=== PATIENT | male | born 1945 | race Caucasian/White ===

== ENCOUNTER 2016-11-21 08:00 | Outpatient (CLI) | payer BC | END 2016-11-21 08:01 | disposition home or self-care (01) | DX: I10 Essential (primary) hypertension (principal); E11.9 Type 2 diabetes mellitus without complications ==

== ENCOUNTER 2017-02-25 07:12 | Outpatient (CLI) | payer BC ==
[2017-02-25 13:20] LABS: HEMOGLOBIN A1C 1.1 g/dL
[2017-02-25 13:28] LABS: BILIRUBIN,TOTAL 0.6 mg/dL (0.2-1.0); CALCIUM 9.2 mg/dL (8.5-10.3); CREATININE 1.1 mg/dL (0.6-1.2); POTASSIUM 3.9 mmol/L (3.5-5.0); TOTAL PROTEIN 6.9 g/dL (6.7-8.2)
== END 2017-02-25 07:13 ==
LOC: LAB.WCP 07:12
PROVIDERS: ATTEND Family Medicine
DX: E11.9 Type 2 diabetes mellitus without complications (principal); M54.5 Low back pain
CPT/HCPCS: 36415; 80053; 83036

== ENCOUNTER 2017-03-24 13:59 | Outpatient (CLI) | payer BC | END 2017-03-24 23:59 | disposition home or self-care (01) | LOC: LAB.WCP 13:59 | PROVIDERS: ATTEND Urology | DX: N40.1 Benign prostatic hyperplasia with lower urinary tract symptoms (principal); C61 Malignant neoplasm of prostate | CPT/HCPCS: 36415; 84153 ==

== ENCOUNTER 2017-05-26 07:08 | Outpatient (CLI) | payer BC ==
[2017-05-26 12:43] LABS: ALBUMIN/GLOBULIN RATIO 1.1 (1.0-2.2); BILIRUBIN,TOTAL 0.9 mg/dL (0.2-1.0); CALCIUM 8.9 mg/dL (8.5-10.3); POTASSIUM 4.1 mmol/L (3.5-5.0); TOTAL PROTEIN 7.2 g/dL (6.7-8.2)
[2017-05-26 13:41] LABS: HEMOGLOBIN A1C 1.01 g/dL
== END 2017-05-26 07:09 | disposition home or self-care (01) ==
LOC: LAB.WCP 07:08
PROVIDERS: ATTEND Family Medicine
DX: E11.9 Type 2 diabetes mellitus without complications (principal)
CPT/HCPCS: 36415; 80053; 82043; 83036

== ENCOUNTER 2017-08-26 15:09 | Outpatient (CLI) | payer BC ==
[2017-08-26 15:09] LABS: ALBUMIN/GLOBULIN RATIO 1.1 (1.0-2.2); BILIRUBIN,TOTAL 0.7 mg/dL (0.2-1.0); CALCIUM 8.9 mg/dL (8.5-10.3); POTASSIUM 3.8 mmol/L (3.5-5.0)
[2017-08-26 15:34] LABS: HEMOGLOBIN A1C 0.94 g/dL
== END 2017-08-26 15:10 | disposition home or self-care (01) ==
LOC: LAB.WCP 15:09
PROVIDERS: ATTEND Family Medicine
DX: M54.5 Low back pain (principal); I10 Essential (primary) hypertension; E11.9 Type 2 diabetes mellitus without complications
CPT/HCPCS: 36415; 80053; 83036

== ENCOUNTER 2017-12-01 08:00 | Outpatient (CLI) | payer BC ==
[2017-12-01 12:41] LABS: HB2 TOTAL 17.6 g/dL; HEMOGLOBIN A1C 1.12 g/dL
== END 2017-12-01 08:01 | disposition home or self-care (01) ==
LOC: LAB.WCP 08:00
PROVIDERS: ATTEND Family Medicine
DX: E11.9 Type 2 diabetes mellitus without complications (principal)
CPT/HCPCS: 36415; 83036

== ENCOUNTER 2018-04-30 08:00 | Outpatient (CLI) | payer BC ==
[2018-04-30 12:37] LABS: ALBUMIN 3.5 g/dL (3.2-5.5); ALBUMIN/GLOBULIN RATIO 1.1 (1.0-2.2); BILIRUBIN,TOTAL 0.9 mg/dL (0.2-1.0); CALCIUM 8.9 mg/dL (8.5-10.3); TOTAL PROTEIN 6.8 g/dL (6.7-8.2)
[2018-04-30 13:28] LABS: HB2 TOTAL 17.6 g/dL; HEMOGLOBIN A1C 0.93 g/dL
== END 2018-04-30 08:01 ==
LOC: LAB.WCP 08:00
PROVIDERS: ATTEND Family Medicine
DX: I10 Essential (primary) hypertension (principal); E11.9 Type 2 diabetes mellitus without complications; Z79.891 Long term (current) use of opiate analgesic
CPT/HCPCS: 36415; 80053; 82043; 83036

== ENCOUNTER 2018-12-07 08:00 | Outpatient (CLI) | payer BC ==
[2018-12-07 12:51] LABS: HB2 TOTAL 17.2 g/dL; HEMOGLOBIN A1C 0.98 g/dL; HEMOGLOBIN A1C % 7.4 % (4.6-6.2)
[2018-12-07 12:53] LABS: ALBUMIN 3.6 g/dL (3.2-5.5); ALBUMIN/GLOBULIN RATIO 1.1 (1.0-2.2); ALKALINE PHOSPHATASE 86 IU/L (42-121); ALT ALANINE AMINOTRANSFERASE 17 IU/L (10-60); AST ASPARTATE AMINOTRANSFERASE 22 IU/L (10-42); BILIRUBIN,TOTAL 0.8 mg/dL (0.2-1.0); BUN - BLOOD UREA NITROGEN 17 mg/dL (6-20); CALCIUM 8.9 mg/dL (8.5-10.3); CARBON DIOXIDE - CO2 30 mmol/L (21-32); CHLORIDE 99 mmol/L (101-111); CHOL/HDL RATIO 2.7 (<5.0); CHOLESTEROL 106 mg/dL; GFR - MDRD 73 (>89); GLUCOSE 114 mg/dL (70-100); HDL CHOLESTEROL 39 mg/dL; LDL CHOLESTEROL,CALCULATED 45 mg/dL; LDL/HDL RATIO 1.2 (<3.6); SODIUM 137 mmol/L (135-145); TOTAL PROTEIN 6.9 g/dL (6.7-8.2); VLDL CHOLESTEROL 22 mg/dL
[2018-12-07 12:55] LABS: PSA FREE 0.34 ng/mL (0.16-2.81)
[2018-12-07 12:56] LABS: PSA TOTAL 3.74 ng/mL (0.000-2.000)
[2018-12-07 12:58] LABS: BASOPHILS # (AUTO) 0.1 10^3/uL (0.0-0.1); BASOPHILS % (AUTO) 1.1 %; EOSINOPHILS # (AUTO) 0.4 10^3/uL (0.0-0.7); EOSINOPHILS % (AUTO) 5.4 %; HGB - HEMOGLOBIN 15.7 g/dL (14.0-18.0); LYMPHOCYTES # (AUTO) 2.7 10^3/uL (1.5-3.5); MEAN CORPUSCULAR HEMOGLOBIN 29.3 pg (27.0-31.0); MEAN CORPUSCULAR HGB CONC 33.7 g/dL (32.0-36.0); MEAN CORPUSCULAR VOLUME 87.1 fL (80.0-94.0); MEAN PLATELET VOLUME 8.9 fL (7.4-11.4); MONOCYTES # (AUTO) 0.7 10^3/uL (0.0-1.0); MONOCYTES % (AUTO) 10.9 %; NEUTROPHILS # (AUTO) 2.8 10^3/uL (1.5-6.6); NEUTROPHILS % (AUTO) 42.6 %; PLT - PLATELET COUNT 199 10^3/uL (130-450); RED BLOOD COUNT 5.36 10^6/uL (4.70-6.10); RED CELL DISTRIBUTION WIDTH 13.6 % (12.0-15.0); WHITE BLOOD COUNT 6.7 x10^3/uL (4.8-10.8)
[2018-12-07 13:10] LABS: CREATININE,URINE 188.8 mg/dL; MICROALBUM/CREATININE RATIO,UR 6.4 ug/mg (<30.0); MICROALBUMIN,URINE 1.2 mg/dL (0-300.0)
== END 2018-12-07 23:59 | disposition home or self-care (01) ==
LOC: LAB.WCP 08:00
PROVIDERS: ATTEND Family Medicine
DX: I10 Essential (primary) hypertension (principal); E78.5 Hyperlipidemia, unspecified; E11.9 Type 2 diabetes mellitus without complications; N40.1 Benign prostatic hyperplasia with lower urinary tract symptoms
CPT/HCPCS: 36415; 80053; 80061; 82043; 82570; 83036; 83721; 84153; 84154; 84443; 85025

== ENCOUNTER 2019-01-25 11:06 | Outpatient (CLI) | payer BC ==
--- NOTE | 2019-01-25 13:22 | XRAY Report ---
Reason: PAINFUL 5TH MT AREA R FOOT Procedure Date: 01/25/2019 Accession Number: [id number] / [id number] Procedure: WCP - Foot 3 View RT CPT Code: FULL RESULT: EXAM: RIGHT FOOT RADIOGRAPHY EXAM DATE: 01/25/2019 11:13 AM. CLINICAL HISTORY: Painful 5th MT area right foot. COMPARISON: None. TECHNIQUE: 3 views. FINDINGS: Bones: There is disruption of the trabecular pattern at the base of the fifth metatarsal as well as osseous proliferative changes in the region. The disrupted trabecular lines extend to the articular surface. Joints: No subluxation. Soft Tissues: Normal. No soft tissue swelling. IMPRESSION: Suspect chronic nondisplaced fracture with intra-articular extension at the base of the fifth metatarsal. RADIA
== END 2019-01-25 11:07 | disposition home or self-care (01) ==
LOC: DI.WCP 11:06
PROVIDERS: ATTEND Podiatrist
DX: M79.671 Pain in right foot (principal)

== ENCOUNTER 2019-02-03 10:12 | Outpatient (CLI) | payer BC ==
--- NOTE | 2019-02-03 16:53 | Nuclear Medicine Report ---
Reason: PAINFUL 5TH M R FOOT Procedure Date: 02/03/2019 Accession Number: [id number] / [id number] Procedure: NM - Bone Limited CPT Code: FULL RESULT: EXAM: TRIPLE-PHASE BONE SCAN LIMITED EXAM DATE: 02/03/2019 03:16 PM. CLINICAL HISTORY: PAINFUL 5TH M R FOOT. COMPARISON: FOOT 3 VIEW RT 01/25/2019 10:56 AM. TECHNIQUE: Patient was injected with 31.9 mCi of technetium 99m MDP intravenously with flow phase gamma camera imaging anteriorly over the feet, 5 seconds per frame for 1 minute. Subsequently, blood pool images of the feet were obtained. The patient returned 3 hours later for multiple spot images of the feet. FINDINGS: Flow Phase: There is asymmetrically increased vascular flow to the right foot. Blood Pool Phase: There is a focus of asymmetric activity corresponding to the right foot small toe. Delayed Phase: 1. Focal asymmetrically increased uptake at the distal tip of the right small toe. 2. Activity at the base of right small toe is mildly greater than that at the base of the left small toe. 3. Mild, symmetric uptake at the bilateral small toe MTP joints. 4. Slightly greater activity in the right great toe MCP joint compared to the left. 5. Focus of asymmetrically increased uptake at the left fourth toe metatarsal base. 6. Focus of asymmetrically increased uptake in the posterior right calcaneus. IMPRESSION: 1. Hyperemia to the right foot with delayed phase increased uptake at the distal tip of the right small toe. Differential considerations for this pattern include fracture, infection, osteoarthritis. 2. There are several additional foci of delayed phase increased uptake in both feet without associated hyperemia, including mildly greater uptake at the base of the right small toe metatarsal compared to the left. RADIA
== END 2019-02-03 10:13 | disposition home or self-care (01) ==
LOC: DI 10:12
PROVIDERS: ATTEND Podiatrist
DX: M79.671 Pain in right foot (principal); R68.89 Other general symptoms and signs
CPT/HCPCS: 78300

== ENCOUNTER 2019-04-27 08:00 | Outpatient (CLI) | payer BC ==
[2019-04-27 12:32] LABS: ALBUMIN 3.5 g/dL (3.2-5.5); BILIRUBIN,TOTAL 0.5 mg/dL (0.2-1.0); CALCIUM 8.9 mg/dL (8.5-10.3); TOTAL PROTEIN 6.9 g/dL (6.7-8.2)
[2019-04-27 12:42] LABS: HB2 TOTAL 16.9 g/dL; HEMOGLOBIN A1C 1.03 g/dL; HEMOGLOBIN A1C % 7.7 % (4.6-6.2)
[2019-04-27 12:51] LABS: CREATININE,URINE 173.1 mg/dL; MICROALBUM/CREATININE RATIO,UR 14.4 ug/mg (<30.0); MICROALBUMIN,URINE 2.5 mg/dL (0-300.0)
== END 2019-04-27 23:59 | disposition home or self-care (01) ==
LOC: LAB.WCP 08:00
PROVIDERS: ATTEND Family Medicine
DX: E11.9 Type 2 diabetes mellitus without complications (principal)
CPT/HCPCS: 36415; 80053; 82043; 82570; 83036; 84443

== ENCOUNTER 2019-08-16 08:00 | Outpatient (CLI) | payer BC | END 2019-08-16 23:59 | disposition home or self-care (01) | LOC: LAB.WCP 08:00 | PROVIDERS: ATTEND Family Medicine | DX: C61 Malignant neoplasm of prostate (principal) | CPT/HCPCS: 36415; 84153 ==

== ENCOUNTER 2019-09-06 07:00 | Outpatient (CLI) | payer BC ==
[2019-09-12 19:23] LABS: CREATININE,URINE 104.9 mg/dL; MICROALBUM/CREATININE RATIO,UR 1.9 ug/mg (<30.0); MICROALBUMIN,URINE 0.2 mg/dL (0-300.0)
== END 2019-09-06 23:59 | disposition home or self-care (01) ==
LOC: LAB.R 07:00
PROVIDERS: ATTEND Family Medicine
DX: E11.9 Type 2 diabetes mellitus without complications (principal); E78.5 Hyperlipidemia, unspecified; I10 Essential (primary) hypertension
CPT/HCPCS: 82043; 82570

== ENCOUNTER 2019-09-06 08:19 | Outpatient (CLI) | payer BC ==
[2019-09-06 11:51] LABS: BASOPHILS # (AUTO) 0.1 10^3/uL (0.0-0.1); BASOPHILS % (AUTO) 0.8 %; EOSINOPHILS # (AUTO) 0.4 10^3/uL (0.0-0.7); HGB - HEMOGLOBIN 16.4 g/dL (14.0-18.0); LYMPHOCYTES # (AUTO) 2.4 10^3/uL (1.5-3.5); LYMPHOCYTES % (AUTO) 38.5 %; MEAN CORPUSCULAR HEMOGLOBIN 29.7 pg (27.0-31.0); MEAN CORPUSCULAR HGB CONC 32.7 g/dL (32.0-36.0); MEAN CORPUSCULAR VOLUME 90.8 fL (80.0-94.0); MEAN PLATELET VOLUME 10.8 fL (7.4-11.4); MONOCYTES # (AUTO) 0.7 10^3/uL (0.0-1.0); MONOCYTES % (AUTO) 11.9 %; NEUTROPHILS # (AUTO) 2.6 10^3/uL (1.5-6.6); NEUTROPHILS % (AUTO) 42.5 %; PLT - PLATELET COUNT 199 10^3/uL (130-450); RED BLOOD COUNT 5.52 10^6/uL (4.70-6.10); WHITE BLOOD COUNT 6.2 x10^3/uL (4.8-10.8)
[2019-09-06 12:06] LABS: ALBUMIN 3.6 g/dL (3.2-5.5); ALBUMIN/GLOBULIN RATIO 1.1 (1.0-2.2); BILIRUBIN,TOTAL 0.8 mg/dL (0.2-1.0); CALCIUM 8.7 mg/dL (8.5-10.3); CREATININE 0.9 mg/dL (0.6-1.2); TOTAL PROTEIN 6.9 g/dL (6.7-8.2)
[2019-09-06 12:09] LABS: HB2 TOTAL 16.8 g/dL; HEMOGLOBIN A1C 0.96 g/dL; HEMOGLOBIN A1C % 7.4 % (4.6-6.2)
== END 2019-09-06 23:59 | disposition home or self-care (01) ==
LOC: LAB.WCP 08:19
PROVIDERS: ATTEND Family Medicine
DX: E11.9 Type 2 diabetes mellitus without complications (principal); E78.5 Hyperlipidemia, unspecified; I10 Essential (primary) hypertension
CPT/HCPCS: 36415; 80053; 82043; 83036; 84443; 85025

== ENCOUNTER 2019-11-29 08:00 | Outpatient (CLI) | payer BC ==
[2019-11-29 12:26] LABS: CALCIUM 8.8 mg/dL (8.5-10.3)
[2019-11-29 12:58] LABS: HB2 TOTAL 17.8 g/dL; HEMOGLOBIN A1C 0.87 g/dL; HEMOGLOBIN A1C % 6.6 % (4.6-6.2)
[2019-11-29 18:43] LABS: CREATININE,URINE 184.7 mg/dL; MICROALBUM/CREATININE RATIO,UR 5.4 ug/mg (<30.0)
== END 2019-11-29 23:59 | disposition home or self-care (01) ==
LOC: LAB.WCP 08:00
PROVIDERS: ATTEND Family Medicine
DX: E11.9 Type 2 diabetes mellitus without complications (principal)
CPT/HCPCS: 36415; 80048; 82043; 82570; 83036

== ENCOUNTER 2020-04-19 07:35 | Outpatient (CLI) | payer BC ==
[2020-04-19 12:17] LABS: HB2 TOTAL 16.4 g/dL; HEMOGLOBIN A1C 0.76 g/dL; HEMOGLOBIN A1C % 6.4 % (4.6-6.2)
[2020-04-19 12:24] LABS: CREATININE,URINE 114.8 mg/dL
[2020-04-19 12:25] LABS: MICROALBUMIN,URINE < 0.2 mg/dL (0-300.0)
== END 2020-04-19 23:59 | disposition home or self-care (01) ==
LOC: LAB.WCP 07:35
PROVIDERS: ATTEND Family Medicine
DX: C61 Malignant neoplasm of prostate (principal); E11.9 Type 2 diabetes mellitus without complications
CPT/HCPCS: 36415; 80048; 82043; 82570; 83036; 84153

== ENCOUNTER 2020-10-09 07:23 | Outpatient (CLI) | payer BC ==
[2020-10-09 12:13] LABS: BASOPHILS % (AUTO) 0.6 %; EOSINOPHILS # (AUTO) 0.3 10^3/uL (0.0-0.7); EOSINOPHILS % (AUTO) 4.6 %; LYMPHOCYTES # (AUTO) 2.4 10^3/uL (1.5-3.5); LYMPHOCYTES % (AUTO) 36.3 %; MEAN CORPUSCULAR HEMOGLOBIN 29.5 pg (27.0-31.0); MEAN CORPUSCULAR HGB CONC 32.5 g/dL (32.0-36.0); MEAN CORPUSCULAR VOLUME 90.8 fL (80.0-94.0); MEAN PLATELET VOLUME 10.9 fL (7.4-11.4); MONOCYTES # (AUTO) 0.7 10^3/uL (0.0-1.0); MONOCYTES % (AUTO) 11.3 %; NEUTROPHILS # (AUTO) 3.1 10^3/uL (1.5-6.6); NEUTROPHILS % (AUTO) 46.9 %; PLT - PLATELET COUNT 205 10^3/uL (130-450); RED BLOOD COUNT 5.76 10^6/uL (4.70-6.10); RED CELL DISTRIBUTION WIDTH 12.5 % (12.0-15.0); WHITE BLOOD COUNT 6.6 x10^3/uL (4.8-10.8)
[2020-10-09 12:36] LABS: ALBUMIN 3.8 g/dL (3.2-5.5); ALBUMIN/GLOBULIN RATIO 1.1 (1.0-2.2); ALKALINE PHOSPHATASE 99 IU/L (42-121); ALT ALANINE AMINOTRANSFERASE 17 IU/L (10-60); AST ASPARTATE AMINOTRANSFERASE 21 IU/L (10-42); BILIRUBIN,TOTAL 0.4 mg/dL (0.2-1.0); BUN - BLOOD UREA NITROGEN 12 mg/dL (6-20); CALCIUM 9.6 mg/dL (8.5-10.3); CARBON DIOXIDE - CO2 33 mmol/L (21-32); CHLORIDE 97 mmol/L (101-111); CHOL/HDL RATIO 2.4 (<5.0); CHOLESTEROL 95 mg/dL; CREATININE 1.1 mg/dL (0.6-1.2); CREATININE,URINE 143.2 mg/dL; GLUCOSE 108 mg/dL (70-100); HDL CHOLESTEROL 40 mg/dL; LDL CHOLESTEROL,CALCULATED 38 mg/dL; MICROALBUM/CREATININE RATIO,UR 6.3 ug/mg (<30.0); MICROALBUMIN,URINE 0.9 mg/dL (0-300.0); TOTAL PROTEIN 7.3 g/dL (6.7-8.2); VLDL CHOLESTEROL 17 mg/dL
== END 2020-10-09 07:24 | disposition home or self-care (01) ==
LOC: LAB.N 07:23
PROVIDERS: ATTEND Family Medicine
DX: E11.9 Type 2 diabetes mellitus without complications (principal); C61 Malignant neoplasm of prostate
CPT/HCPCS: 36415; 80053; 80061; 82043; 82570; 83036; 83721; 84153; 85025

== ENCOUNTER 2020-11-04 07:55 | Outpatient (CLI) | payer BC ==
--- NOTE | 2020-11-04 13:29 | Ultrasound Report ---
PROCEDURE: Aorta Screening INDICATIONS: NICOTINE ADDICTION, IN REMISSION TECHNIQUE: Real time scanning was performed of the aorta and iliac arteries, with image documentatio n. COMPARISON: None FINDINGS: Aorta: Proximal aortic diameter measures 3.0 cm. Mid-aorta measures 2.3 cm. Distal aortic diameter is 2.1 cm. Iliac arteries: Right common iliac artery measures 1.2 cm. Left common iliac artery measures 1.0 cm . 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 Annual sonographic surveillance recommend ed. Reviewed by: Linden Thompson MD on 11/04/2020 12:28 PM [place] Approved by: Linden Thompson MD on 11/04/2020 12:28 PM [facility] Station ID: [id number]
== END 2020-11-04 07:56 | disposition home or self-care (01) ==
LOC: DI 07:55
PROVIDERS: ATTEND Family Medicine
DX: I71.4 Abdominal aortic aneurysm, without rupture (principal); F17.201 Nicotine dependence, unspecified, in remission; J34.2 Deviated nasal septum; J32.9 Chronic sinusitis, unspecified

== ENCOUNTER 2020-11-04 07:56 | Outpatient (CLI) | payer BC ==
--- NOTE | 2020-11-04 08:48 | CT Report ---
PROCEDURE: Sinuses INDICATIONS: DEVIATED NASAL SEPTUM, CHRONIC SINUSITIS TECHNIQUE: Noncontrast 3.0 mm axial images acquired from the frontal sinuses to the mid-sella, with coronal and sagittal reformats. For radiation dose reduction, the following was used: automated exposure control , adjustment of mA and/or kV according to patient size. COMPARISON: None. FINDINGS: Image quality: Excellent. Maxillary Sinuses: No bony remodeling or destruction. Mild bilateral maxillary sinus mucosal thicken ing. Ethmoid Air Cells: No bony remodeling or destruction. Mild bilateral ethmoid sinus mucosal thickenin g. Sphenoid Sinuses: No bony remodeling or destruction. Mild mucosal thickening within the right spheno id sinus. Frontal Sinuses: No bony remodeling or destruction. Mild mucosal thickening within the bilateral med ial frontal sinuses. Ostiomeatal Complexes: Right ostiomeatal unit is opacified. Partial opacification of the left ostiome atal unit. No Linda cells. Miscellaneous: Visualized intra-orbital contents are normal. No desire bullosa. Mild rightward nasa l septal deviation. IMPRESSION: 1. Pansinus mucosal disease. 2. Right ostiomeatal unit opacification. 3. Mild rightward nasal septal deviation. Reviewed by: Linden Thompson MD on 11/04/2020 7:47 AM [place] Approved by: Linden Thompson MD on 11/04/2020 7:47 AM [facility] Station ID: [id number]
== END 2020-11-04 07:57 | disposition home or self-care (01) ==
LOC: DI 07:56
PROVIDERS: ATTEND Family Medicine
DX: J34.2 Deviated nasal septum (principal); J32.9 Chronic sinusitis, unspecified

== ENCOUNTER 2021-01-07 07:18 | Outpatient (CLI) | payer BC ==
[2021-01-07 11:46] LABS: CALCIUM 9.4 mg/dL (8.5-10.3); CREATININE 1.1 mg/dL (0.6-1.2); POTASSIUM 4.3 mmol/L (3.5-5.0)
[2021-01-07 11:59] LABS: ESTIMATED AVERAGE GLUCOSE 148 mg/dL (70-100); HEMOGLOBIN A1c% 6.8 % (4.27-6.07)
== END 2021-01-07 07:19 | disposition home or self-care (01) ==
LOC: LAB.N 07:18
PROVIDERS: ATTEND Family Medicine
DX: E11.9 Type 2 diabetes mellitus without complications (principal)
CPT/HCPCS: 36415; 80048; 83036; 84153

== ENCOUNTER 2021-07-10 07:37 | Outpatient (CLI) | payer BC ==
[2021-07-10 12:21] LABS: BASOPHILS % (AUTO) 0.6 %; EOSINOPHILS # (AUTO) 0.3 10^3/uL (0.0-0.7); EOSINOPHILS % (AUTO) 4.3 %; HCT - HEMATOCRIT 52.7 % (42.0-52.0); HGB - HEMOGLOBIN 17.1 g/dL (14.0-18.0); LYMPHOCYTES # (AUTO) 2.3 10^3/uL (1.5-3.5); LYMPHOCYTES % (AUTO) 36.8 %; MEAN CORPUSCULAR HEMOGLOBIN 29.8 pg (27.0-31.0); MEAN CORPUSCULAR HGB CONC 32.4 g/dL (32.0-36.0); MEAN CORPUSCULAR VOLUME 91.8 fL (80.0-94.0); MEAN PLATELET VOLUME 10.9 fL (7.4-11.4); MONOCYTES # (AUTO) 0.7 10^3/uL (0.0-1.0); MONOCYTES % (AUTO) 11.6 %; NEUTROPHILS # (AUTO) 2.9 10^3/uL (1.5-6.6); NEUTROPHILS % (AUTO) 46.5 %; PLT - PLATELET COUNT 193 10^3/uL (130-450); RED BLOOD COUNT 5.74 10^6/uL (4.70-6.10); RED CELL DISTRIBUTION WIDTH 12.6 % (12.0-15.0); WHITE BLOOD COUNT 6.3 x10^3/uL (4.8-10.8)
[2021-07-10 12:40] LABS: ALBUMIN 3.7 g/dL (3.2-5.5); ALBUMIN/GLOBULIN RATIO 1.1 (1.0-2.2); ALKALINE PHOSPHATASE 88 IU/L (42-121); ALT ALANINE AMINOTRANSFERASE 19 IU/L (10-60); AST ASPARTATE AMINOTRANSFERASE 21 IU/L (10-42); BUN - BLOOD UREA NITROGEN 14 mg/dL (6-20); CALCIUM 9.2 mg/dL (8.5-10.3); CARBON DIOXIDE - CO2 34 mmol/L (21-32); CHLORIDE 98 mmol/L (101-111); CHOL/HDL RATIO 2.5 (<5.0); CHOLESTEROL 105 mg/dL; GFR - MDRD 73 (>89); GLUCOSE 77 mg/dL (70-100); HDL CHOLESTEROL 42 mg/dL; LDL CHOLESTEROL,CALCULATED 41 mg/dL; POTASSIUM 3.9 mmol/L (3.5-5.0); SODIUM 138 mmol/L (135-145); TOTAL PROTEIN 7.1 g/dL (6.7-8.2); TRIGLYCERIDES 110 mg/dL; VLDL CHOLESTEROL 22 mg/dL
[2021-07-10 13:58] LABS: ESTIMATED AVERAGE GLUCOSE 148 mg/dL (70-100); HEMOGLOBIN A1c% 6.8 % (4.27-6.07)
== END 2021-07-10 07:38 | disposition home or self-care (01) ==
LOC: LAB.N 07:37
PROVIDERS: ATTEND Family Medicine
DX: E11.9 Type 2 diabetes mellitus without complications (principal); C61 Malignant neoplasm of prostate
CPT/HCPCS: 36415; 80053; 80061; 83036; 83721; 84153; 85025

== ENCOUNTER 2021-07-18 08:19 | Outpatient (CLI) | payer BC ==
--- NOTE | 2021-07-18 09:14 | XRAY Report ---
PROCEDURE: Lumbar Spine 2 View INDICATIONS: CHRONIC LOW BACK PAIN TECHNIQUE: 3 views of the lumbar spine were acquired. COMPARISON: None. FINDINGS: Bones: 5 [id number] vertebrae are present. Degenerative disc disease of the lumbar spine with disc space narrowing at L3-4, L4-5, and L5-S1. There is facet arthrosis in the lower lumbar spine. Th ere is normal bony alignment. No vertebral body compression fractures. No suspicious bony lesions. Soft tissues: Overlying bowel gas pattern is normal. No suspicious soft tissue calcifications. The aorta is atherosclerotic with no aneurysmal dilatation. IMPRESSION: 1. Degenerative changes of the lumbar spine. 2. Multilevel disc disease and facet arthrosis as above. Reviewed by: Royer Ronquillo on 07/18/2021 9:12 AM [facility] Approved by: Royer Ronquillo on 07/18/2021 9:12 AM [facility] Station ID: [id number]
--- NOTE | 2021-07-18 09:17 | XRAY Report ---
PROCEDURE: Knee 4 View LT INDICATIONS: ARTHRITIS LEFT KNEE TECHNIQUE: 4 views of the left knee(s) were acquired. COMPARISON: None. FINDINGS: Bones: No fractures or dislocations. There is medial joint space narrowing and tricompartmental ost eophytes. No suspicious bony lesions. Soft tissues: No joint effusion. No suspicious soft tissue calcifications. IMPRESSION: 1. Tricompartmental degenerative changes consistent with osteoarthritis. 2. No acute abnormality. Reviewed by: Royer Ronquillo on 07/18/2021 9:16 AM [facility] Approved by: Royer Ronquillo on 07/18/2021 9:16 AM [facility] Station ID: [id number]
== END 2021-07-18 08:20 | disposition home or self-care (01) ==
LOC: DI.N 08:19
PROVIDERS: ATTEND Family Medicine
DX: M47.816 Spondylosis without myelopathy or radiculopathy, lumbar region (principal); M51.36 Other intervertebral disc degeneration, lumbar region; M51.37 Other intervertebral disc degeneration, lumbosacral region; M17.12 Unilateral primary osteoarthritis, left knee; C61 Malignant neoplasm of prostate

== ENCOUNTER 2022-01-09 07:21 | Outpatient (CLI) | payer BC ==
[2022-01-09 13:14] LABS: BASOPHILS # (AUTO) 0.1 10^3/uL (0.0-0.1); BASOPHILS % (AUTO) 0.9 %; EOSINOPHILS # (AUTO) 0.3 10^3/uL (0.0-0.7); EOSINOPHILS % (AUTO) 4.5 %; HCT - HEMATOCRIT 52.5 % (42.0-52.0); HGB - HEMOGLOBIN 17.3 g/dL (14.0-18.0); LYMPHOCYTES # (AUTO) 2.3 10^3/uL (1.5-3.5); LYMPHOCYTES % (AUTO) 34.5 %; MEAN CORPUSCULAR HEMOGLOBIN 29.7 pg (27.0-31.0); MEAN CORPUSCULAR VOLUME 90.1 fL (80.0-94.0); MONOCYTES # (AUTO) 0.8 10^3/uL (0.0-1.0); MONOCYTES % (AUTO) 12.2 %; NEUTROPHILS # (AUTO) 3.2 10^3/uL (1.5-6.6); NEUTROPHILS % (AUTO) 47.6 %; PLT - PLATELET COUNT 212 10^3/uL (130-450); RED BLOOD COUNT 5.83 10^6/uL (4.70-6.10); RED CELL DISTRIBUTION WIDTH 12.5 % (12.0-15.0); WHITE BLOOD COUNT 6.7 x10^3/uL (4.8-10.8)
[2022-01-09 13:51] LABS: ALBUMIN 3.7 g/dL (3.2-5.5); ALBUMIN/GLOBULIN RATIO 1.1 (1.0-2.2); ALKALINE PHOSPHATASE 90 IU/L (42-121); ALT ALANINE AMINOTRANSFERASE 17 IU/L (10-60); AST ASPARTATE AMINOTRANSFERASE 19 IU/L (10-42); BILIRUBIN,TOTAL 0.7 mg/dL (0.2-1.0); BUN - BLOOD UREA NITROGEN 13 mg/dL (6-20); CALCIUM 9.2 mg/dL (8.5-10.3); CARBON DIOXIDE - CO2 33 mmol/L (21-32); CHLORIDE 99 mmol/L (101-111); CHOL/HDL RATIO 2.7 (<5.0); CHOLESTEROL 110 mg/dL; GFR - MDRD 73 (>89); GLUCOSE 85 mg/dL (70-100); HDL CHOLESTEROL 41 mg/dL; LDL CHOLESTEROL,CALCULATED 46 mg/dL; LDL/HDL RATIO 1.1 (<3.6); POTASSIUM 4.1 mmol/L (3.5-5.0); SODIUM 141 mmol/L (135-145); TOTAL PROTEIN 7.2 g/dL (6.7-8.2); TRIGLYCERIDES 116 mg/dL; VLDL CHOLESTEROL 23 mg/dL
[2022-01-09 14:14] LABS: ESTIMATED AVERAGE GLUCOSE 154 mg/dL (70-100)
[2022-01-09 14:15] LABS: CREATININE,URINE 80.2 mg/dL; MICROALBUM/CREATININE RATIO,UR 3.7 ug/mg (<30.0); MICROALBUMIN,URINE 0.3 mg/dL (0-300.0)
== END 2022-01-09 07:22 | disposition home or self-care (01) ==
LOC: LAB.N 07:21
PROVIDERS: ATTEND Family Medicine
DX: C61 Malignant neoplasm of prostate (principal); E11.9 Type 2 diabetes mellitus without complications
CPT/HCPCS: 36415; 80053; 80061; 82043; 82570; 83036; 83721; 84153; 85025

== ENCOUNTER 2022-02-18 07:00 | Outpatient (CLI) | payer BC ==
--- NOTE | 2022-02-18 10:22 | Ultrasound Report ---
PROCEDURE: Retroperitoneal Limited INDICATIONS: AAA TECHNIQUE: Real time scanning was performed of the aorta and iliac arteries, with image documentatio n. COMPARISON: Ultrasound aorta 11/04/2020 FINDINGS: Aorta: Proximal aortic diameter measures 2.4 x 2.4 cm. Mid-aorta measures 1.8 x 1.8 cm. Distal aor tic diameter is 1.7 x 1.9 cm. Iliac arteries: Right common iliac artery measures 1 x 1.1 cm. Left common iliac artery measures 1 x 1.2 cm. IMPRESSION: Negative for abdominal aortic aneurysm. Reviewed by: Hasmukh Tristan MD on 02/18/2022 10:21 AM PDT Approved by: Hasmukh Tristan MD on 02/18/2022 10:21 AM PDT Station ID: [id number]
== END 2022-02-18 07:01 | disposition home or self-care (01) ==
LOC: DI 07:00
PROVIDERS: ATTEND Family Medicine
DX: I71.4 Abdominal aortic aneurysm, without rupture (principal)

== ENCOUNTER 2022-07-03 08:05 | Outpatient (CLI) | payer BC ==
[2022-07-03 12:02] LABS: BASOPHILS # (AUTO) 0.1 10^3/uL (0.0-0.1); BASOPHILS % (AUTO) 0.9 %; EOSINOPHILS # (AUTO) 0.4 10^3/uL (0.0-0.7); EOSINOPHILS % (AUTO) 6.2 %; HCT - HEMATOCRIT 52.2 % (42.0-52.0); HGB - HEMOGLOBIN 16.9 g/dL (14.0-18.0); LYMPHOCYTES # (AUTO) 2.4 10^3/uL (1.5-3.5); LYMPHOCYTES % (AUTO) 36.7 %; MEAN CORPUSCULAR HEMOGLOBIN 29.2 pg (27.0-31.0); MEAN CORPUSCULAR HGB CONC 32.4 g/dL (32.0-36.0); MEAN CORPUSCULAR VOLUME 90.3 fL (80.0-94.0); MEAN PLATELET VOLUME 10.6 fL (7.4-11.4); MONOCYTES # (AUTO) 0.8 10^3/uL (0.0-1.0); NEUTROPHILS # (AUTO) 2.8 10^3/uL (1.5-6.6); PLT - PLATELET COUNT 207 10^3/uL (130-450); RED BLOOD COUNT 5.78 10^6/uL (4.70-6.10); RED CELL DISTRIBUTION WIDTH 12.5 % (12.0-15.0); WHITE BLOOD COUNT 6.5 x10^3/uL (4.8-10.8)
[2022-07-03 12:28] LABS: ESTIMATED AVERAGE GLUCOSE 148 mg/dL (70-100); HEMOGLOBIN A1c% 6.8 % (4.27-6.07)
[2022-07-03 12:43] LABS: ALBUMIN 3.5 g/dL (3.2-5.5); ALBUMIN/GLOBULIN RATIO 1.1 (1.0-2.2); ALKALINE PHOSPHATASE 82 IU/L (42-121); ALT ALANINE AMINOTRANSFERASE 19 IU/L (10-60); AST ASPARTATE AMINOTRANSFERASE 21 IU/L (10-42); BILIRUBIN,TOTAL 0.8 mg/dL (0.2-1.0); BUN - BLOOD UREA NITROGEN 14 mg/dL (6-20); CALCIUM 9.2 mg/dL (8.5-10.3); CARBON DIOXIDE - CO2 33 mmol/L (21-32); CHLORIDE 100 mmol/L (101-111); CHOLESTEROL 106 mg/dL; GFR - MDRD 73 (>89); GLUCOSE 91 mg/dL (70-100); HDL CHOLESTEROL 35 mg/dL; LDL CHOLESTEROL,CALCULATED 49 mg/dL; LDL/HDL RATIO 1.4 (<3.6); POTASSIUM 3.7 mmol/L (3.5-5.0); SODIUM 140 mmol/L (135-145); TOTAL PROTEIN 6.8 g/dL (6.7-8.2); TRIGLYCERIDES 112 mg/dL; VLDL CHOLESTEROL 22 mg/dL
== END 2022-07-03 08:06 | disposition home or self-care (01) ==
LOC: LAB.N 08:05
PROVIDERS: ATTEND Family Medicine
DX: E11.9 Type 2 diabetes mellitus without complications (principal); D75.1 Secondary polycythemia; R97.20 Elevated prostate specific antigen [PSA]
CPT/HCPCS: 36415; 80053; 80061; 83036; 83721; 84153; 85025

== ENCOUNTER 2023-01-01 08:28 | Outpatient (CLI) | payer BC ==
[2023-01-01 12:14] LABS: BASOPHILS # (AUTO) 0.1 10^3/uL (0.0-0.1); EOSINOPHILS # (AUTO) 0.3 10^3/uL (0.0-0.7); EOSINOPHILS % (AUTO) 3.8 %; HCT - HEMATOCRIT 52.7 % (42.0-52.0); HGB - HEMOGLOBIN 17.2 g/dL (14.0-18.0); LYMPHOCYTES # (AUTO) 2.7 10^3/uL (1.5-3.5); MEAN CORPUSCULAR HEMOGLOBIN 29.3 pg (27.0-31.0); MEAN CORPUSCULAR HGB CONC 32.6 g/dL (32.0-36.0); MEAN CORPUSCULAR VOLUME 89.6 fL (80.0-94.0); MEAN PLATELET VOLUME 10.9 fL (7.4-11.4); MONOCYTES # (AUTO) 0.9 10^3/uL (0.0-1.0); MONOCYTES % (AUTO) 13.1 %; NEUTROPHILS # (AUTO) 2.9 10^3/uL (1.5-6.6); PLT - PLATELET COUNT 201 10^3/uL (130-450); RED BLOOD COUNT 5.88 10^6/uL (4.70-6.10); RED CELL DISTRIBUTION WIDTH 12.7 % (12.0-15.0); WHITE BLOOD COUNT 6.8 x10^3/uL (4.8-10.8)
[2023-01-01 12:29] LABS: ALBUMIN 3.7 g/dL (3.2-5.5); ALBUMIN/GLOBULIN RATIO 1.1 (1.0-2.2); ALKALINE PHOSPHATASE 85 IU/L (42-121); ALT ALANINE AMINOTRANSFERASE 20 IU/L (10-60); AST ASPARTATE AMINOTRANSFERASE 22 IU/L (10-42); BILIRUBIN,TOTAL 1.1 mg/dL (0.2-1.0); BUN - BLOOD UREA NITROGEN 18 mg/dL (6-20); CALCIUM 9.1 mg/dL (8.5-10.3); CARBON DIOXIDE - CO2 34 mmol/L (21-32); CHLORIDE 99 mmol/L (101-111); CHOL/HDL RATIO 2.5 (<5.0); CHOLESTEROL 102 mg/dL; CREATININE 1.1 mg/dL (0.6-1.2); GFR - MDRD 65 (>89); GLUCOSE 83 mg/dL (70-100); HDL CHOLESTEROL 41 mg/dL; LDL CHOLESTEROL,CALCULATED 45 mg/dL; LDL/HDL RATIO 1.1 (<3.6); POTASSIUM 3.5 mmol/L (3.5-5.0); SODIUM 138 mmol/L (135-145); TRIGLYCERIDES 79 mg/dL; VLDL CHOLESTEROL 16 mg/dL
[2023-01-01 12:38] LABS: THYROID STIMULATING HORMONE 1.18 uIU/mL (0.34-5.60)
[2023-01-01 12:56] LABS: CREATININE,URINE 131.3 mg/dL; MICROALBUM/CREATININE RATIO,UR 2.3 ug/mg (<30.0); MICROALBUMIN,URINE 0.3 mg/dL (0-300.0)
[2023-01-01 12:59] LABS: ESTIMATED AVERAGE GLUCOSE 163 mg/dL (70-100); HEMOGLOBIN A1c% 7.3 % (4.27-6.07)
== END 2023-01-01 08:29 | disposition home or self-care (01) ==
LOC: LAB.N 08:28
PROVIDERS: ATTEND Physician Assistant
DX: I10 Essential (primary) hypertension (principal); E11.9 Type 2 diabetes mellitus without complications; E78.5 Hyperlipidemia, unspecified
CPT/HCPCS: 36415; 80053; 80061; 82043; 82570; 83036; 83721; 84443; 85025

== ENCOUNTER 2023-07-02 07:13 | Outpatient (CLI) | payer BC ==
[2023-07-02 12:16] LABS: BASOPHILS # (AUTO) 0.1 10^3/uL (0.0-0.1); BASOPHILS % (AUTO) 1.1 %; EOSINOPHILS # (AUTO) 0.4 10^3/uL (0.0-0.7); EOSINOPHILS % (AUTO) 5.7 %; HCT - HEMATOCRIT 52.1 % (42.0-52.0); HGB - HEMOGLOBIN 17.3 g/dL (14.0-18.0); LYMPHOCYTES # (AUTO) 2.4 10^3/uL (1.5-3.5); LYMPHOCYTES % (AUTO) 39.6 %; MEAN CORPUSCULAR HEMOGLOBIN 29.4 pg (27.0-31.0); MEAN CORPUSCULAR HGB CONC 33.2 g/dL (32.0-36.0); MEAN CORPUSCULAR VOLUME 88.5 fL (80.0-94.0); MEAN PLATELET VOLUME 10.6 fL (7.4-11.4); MONOCYTES # (AUTO) 0.7 10^3/uL (0.0-1.0); MONOCYTES % (AUTO) 11.4 %; NEUTROPHILS # (AUTO) 2.6 10^3/uL (1.5-6.6); PLT - PLATELET COUNT 196 10^3/uL (130-450); RED BLOOD COUNT 5.89 10^6/uL (4.70-6.10); RED CELL DISTRIBUTION WIDTH 12.5 % (12.0-15.0); WHITE BLOOD COUNT 6.2 x10^3/uL (4.8-10.8)
[2023-07-02 12:30] LABS: ALBUMIN 3.8 g/dL (3.2-5.5); ALBUMIN/GLOBULIN RATIO 1.2 (1.0-2.2); ALKALINE PHOSPHATASE 83 IU/L (42-121); ALT ALANINE AMINOTRANSFERASE 13 IU/L (10-60); AST ASPARTATE AMINOTRANSFERASE 16 IU/L (10-42); BILIRUBIN,TOTAL 0.6 mg/dL (0.2-1.0); BUN - BLOOD UREA NITROGEN 12 mg/dL (6-20); CALCIUM 9.4 mg/dL (8.5-10.3); CARBON DIOXIDE - CO2 37 mmol/L (21-32); CHLORIDE 102 mmol/L (101-111); CHOL/HDL RATIO 2.6 (<5.0); CHOLESTEROL 102 mg/dL; CREATININE 1.1 mg/dL (0.6-1.3); GFR - MDRD 65 (>89); GLUCOSE 83 mg/dL (74-104); HDL CHOLESTEROL 40 mg/dL; LDL CHOLESTEROL,CALCULATED 42 mg/dL; LDL/HDL RATIO 1.1 (<3.6); POTASSIUM 3.7 mmol/L (3.5-4.5); SODIUM 141 mmol/L (135-145); TOTAL PROTEIN 6.9 g/dL (6.4-8.9); TRIGLYCERIDES 101 mg/dL (48-352); VLDL CHOLESTEROL 20 mg/dL
[2023-07-02 12:51] LABS: ESTIMATED AVERAGE GLUCOSE 151 mg/dL (70-100); HEMOGLOBIN A1c% 6.9 % (4.27-6.07)
== END 2023-07-02 07:14 | disposition home or self-care (01) ==
LOC: LAB.N 07:13
PROVIDERS: ATTEND Physician Assistant
DX: E11.9 Type 2 diabetes mellitus without complications (principal); E78.5 Hyperlipidemia, unspecified; R97.20 Elevated prostate specific antigen [PSA]
CPT/HCPCS: 36415; 80053; 80061; 83036; 83721; 84153; 85025